=== PATIENT | male | born 1990 | race African-American/Black ===

== ENCOUNTER 2023-05-03 16:15 | Emergency (ER) | payer OTHER, SELFPAY ==
--- NOTE | ~2023-05-03 | XR_ITS ---
EXAMINATION: XR ankle RT min 3V DATE: 05/03/2023 17:08 INDICATION: Twisting right ankle injury with palpable pop and anterior pain. TECHNIQUE: Anteroposterior, oblique, mortise, and lateral views of the right ankle were obtained. COMPARISON: None. FINDINGS: Subtle linear lucency extending towards the medial cortex of the distal fibula at the level of the ti biotalar joint line and projecting across the more cephalad anterior cortex suspicious for nondisplac ed fracture. There is overlying soft tissue swelling. No other lesions suspicious for fracture. Align ment remains essentially anatomic with a congruent ankle mortise. Joint spaces are normal. IMPRESSION: 1. Suspicion for nondisplaced fracture of the metaphyseal region of the distal right fibula. Correlat e for point tenderness slightly cephalad to the lateral malleolus. Reviewed, dictated and finalized at location A. C HISTORIAN IMPRESSION: 1. Suspicion for nondisplaced fracture of the metaphyseal region of the distal right fibula. Correlate for point tenderness slightly cephalad to the lateral m alleolus.
[2023-05-03 16:19] VITALS: BP 146/93; PULSE 87; RESP 20; TEMP 36.9; O2SAT 100
--- NOTE | 2023-05-03 18:18 | ED.LOWEXIN ---
HPI - Extremity Injury (Lower) General Chief Complaint: Extremity Injury, Lower Stated Complaint: R ANKLE PAIN Time Seen by Provider: 05/03/23 17:31 Source: patient Mode of arrival: wheelchair Limitations: no limitations History of Present Illness HPI Narrative: This is a 32-year-old male that presents to the emergency department for right ankle injury sustained this afternoon. Reports he was stepping out of his truck and rolled his right ankle. Reports swelling and pain to the lateral ankle. Reports decreased range of motion due to pain. Denies numbness. Related Data Allergies Allergy/AdvReac Type Severity Reaction Status Date / Time No Known Allergies Allergy Verified 05/03/23 16:21 Review of Systems Review of Systems: CONSTITUTIONAL: Denies fever MUSCULOSKELETAL: Reports joint pain, and myalgia. NEUROLOGIC: Denies numbness All systems reviewed & are unremarkable except as noted in HPI and below PMFSH Past Medical History Medical History (Updated 05/03/23 @ 18:30 by Vibha Kline PA-C) No active medical problems Social History Social History (Updated 05/03/23 @ 18:20 by Vibha Kline PA-C) Smoking status: Current some day smoker Tobacco type: cigars Exam Narrative: GENERAL: Well-appearing, well-nourished, and in no acute distress. HEAD: Normocephalic, atraumatic. EYES: EOMI. EXTREMITIES: Normal range of motion. Moderate edema about the right lateral malleoli, tender to palpation. Normal DP pulse. Normal sensation SKIN: Warm, dry, no rash. NEURO: No focal deficits. Alert and oriented x3. PSYCH: Normal mood and affect Course Course Emergency Course: patient updated on workup and agrees with plan of care Vital Signs Vital signs: Vital Signs Temperature 98.4 F 05/03/23 16:19 Pulse Rate 87 05/03/23 16:19 Respiratory Rate 20 05/03/23 16:19 Blood Pressure 146/93 H 05/03/23 16:19 Pulse Oximetry 100 05/03/23 16:19 Temperature 98.4 F 05/03/23 16:19 Pulse Rate 87 05/03/23 16:19 Respiratory Rate 20 05/03/23 16:19 Blood Pressure 146/93 H 05/03/23 16:19 Pulse Oximetry 100 05/03/23 16:19 Procedures Orthopedic Splinting/Casting Injury #1: Splinting/Casting Date: 05/03/23 Splinting/Casting Time: 18:21 Side: right Lower Extremity Injury Location: ankle Lower Extremity Immobilizer: posterior splint Splint: customized in ED OCL: short leg Pre-Procedure Neuro Vascular Exam: normal Post-Procedure Neuro Vascular Exam: normal Other Orthopedic Equipment: crutches MDM - Extremity Injury (Lower) MDM Narrative Medical decision making narrative: Patient presents to the ER for right ankle pain after an injury today. He is neurovascularly intact. Right ankle x-ray shows a possible nondisplaced distal fibula fracture. This does correlate with the area of patient's pain. Patient will be placed in a short-leg posterior and given follow-up with Orthopedics. He was given warnings to return to the ER Differential Diagnosis Differential diagnosis: Likely ankle sprain and strain and ankle fracture Imaging Data Radiologist's impression: ITS Impressions Ankle X-Ray 05/03/23 17:09 IMPRESSION: 1. Suspicion for nondisplaced fracture of the metaphyseal region of the distal right fibula. Correlate for point tenderness slightly cephalad to the lateral malleolus. Critical Care Time Critical Care Time Critical Care Time: No Discharge Plan Discharge Clinical Impression: Fracture of distal end of fibula Qualifiers: Encounter type: initial encounter Fracture type: closed Fracture morphology: unspecified fracture morphology Laterality: right Qualified Code(s): S82.831A - Other fracture of upper and lower end of right fibula, initial encounter for closed fracture Patient Disposition: Home, Self-Care Condition: Stable Instructions: Ankle Fracture (ED) Additional Instructions:
[2023-05-03] MEDS: HYDROcodone/acetaminophen (*CRX) 5-325 MG TABLET 1 TAB PO (18:39)
[2023-05-03 18:40] VITALS: BP 147/88; PULSE 89; RESP 18; TEMP 36.4; O2SAT 99
== END 2023-05-03 18:53 | disposition home or self-care (01) ==
PROVIDERS: Emergency Provider Physician Assistant
DX: S82.831A Other fracture of upper and lower end of right fibula, initial encounter for closed fracture (principal); V58.4XXA Person boarding or alighting a pick-up truck or van injured in noncollision transport accident, initial encounter
CPT/HCPCS: 29515; 73610; 99284; A9270